=== PATIENT | female | born 1960 | race Caucasian/White ===

== ENCOUNTER 2017-01-28 14:40 | Emergency (ER) ==
--- NOTE | 2017-01-28 16:19 | PROVIDER DOCUMENTATION ---
HPI-General Adult - General Chief Complaint: Allergic Reaction Stated Complaint: ALLERGIC REACTION Time Seen by Provider: 01/28/17 16:02 Source: patient Allergies/Adverse Reactions: Patient Allergies Allergy/AdvReac Type Severity Reaction Status Date / Time amoxicillin Allergy ANAPHYLAXIS Verified 01/28/17 16:51 Home Medications: Home Medication List Medication Instructions Recorded Confirmed Last Taken Type LISINOpril [Prinivil] 5 mg PO DAILY #20 tablet 01/28/17 Unknown Rx - History of Present Illness -Gen Adult Nature of Presenting Problems: 56 y/o c/o possible allergic reaction. Was seen by [facility], dx with strep, and given amoxil and cough syrup on 01/20/17. Was taking those medications , and on 01/26 started feeling like her throat was closing and the chest was tight. Went back to the Urgent care and was given Ranatidine, Clindamycin, albuterol and prednisone. At the office that day given steroid shot and breathing treatment. Went to the ER the night of the , because she was having tightness in chest and throat. Was given a breathing treatment, and IV for BP. did xrays and CT scan to r/o PE, ruled out cardiac issues and did blood work. Told her she had bronchitis. Told her to continue taking the medications- she feels like she is having similar symptoms now. States she now has a headache along side it. Taking Motrin for pain. Tried to see Dr. Sharpe today, who sent her here because she is not seeing new patients. Review of Systems - Adult - REVIEW OF SYSTEMS - ADULT Constitutional: reports: see cuate GALVAN. denies: chills, fever Eyes: reports: no symptoms reported. denies: decreased vision, blurred vision, double vision, eye pain Ears, Nose, Mouth & Throat: reports: no symptoms reported. denies: ear pain, nose pain, throat pain Cardiovascular: reports: no symptoms reported. denies: chest pain, irregular heart rate, palpitations Respiratory: reports: no symptoms reported. denies: cough, shortness of breath , wheezing Gastrointestinal: reports: no symptoms reported. denies: abdominal pain, diarrhea, nausea, vomiting Genitourinary: reports: no symptoms reported. denies: frequency, incontinence Musculoskeletal: reports: no symptoms reported. denies: bone pain, back pain, muscle aches Integumentary: reports: no symptoms reported. denies: rash Neurological: reports: no symptoms reported. denies: ataxia, dizziness/vertigo , headache/migraines Psychiatric: reports: anxiety Endocrine: reports: no symptoms reported Hematologic/Lymphatic: reports: no symptoms reported Allergic/Immunologic: reports: no symptoms reported All Other Systems: Reviewed and Negative Past History - Adult - PAST MEDICAL HISTORY-ADULT Review of Records: reports: Old Records Reviewed, Nursing Assessment Review, Medications Reviewed Major Childhood Illnesses: reports: denies history Cardiovascular: reports: denies history Respiratory: reports: denies history Gastrointestinal: reports: denies history Obstetrical/Gynecological: reports: denies history Genitourinary: reports: denies history Musculoskeletal: reports: denies history Neurological: reports: denies history Endocrine/Immune: reports: denies history Other Conditions: reports: denies history - PRIOR SURGERIES/PROCEDURES Surgical/Procedure History: reports: reviewed, not pertinent - IMMUNIZATION STATUS Childhood Immunizations: See Nurse Assessment Flu Vaccine: See Nurse Assessment - FAMILY HISTORY Family History: reviewed, not pertinent - SOCIAL HISTORY Smoking: denies Substance Use: none/never Alcohol Use Frequency: never Physical Exam-General - PHYSICAL EXAM-ADULT Initial Vital Signs Reviewed: Yes - CONSTITUTIONAL General Appearance: appears well, alert, anxious - EYES Eyes: PERRL/EOMI, pink conjunctivae - HEAD, EARS, NOSE, MOUTH & THROAT HENMT: normocephalic/atraumatic, moist mucous membranes, normal ENT inspection, pharynx normal - NECK Neck: non-tender, full range of motion, supple, normal inspection. negative: lymphadenopathy - RESPIRATORY Respiratory: chest non-tender, lungs clear, normal breath sounds, no pleuratic chest pain, no respiratory distress, no accessory muscle use. negative: respiratory distress, decreased breath sounds, accessory muscle use, crackles, rales, rhonchi, wheezing - CARDIOVASCULAR Cardiovascular: normal peripheral pulses, regular rate, rhythm - MUSCULOSKELETAL Extremity: normal gait - SKIN Integumentary: normal color, normal turgor, warm/dry - NEUROLOGIC Neurologic: grossly normal, no motor/sensory deficits - PSYCHIATRIC Psych/Mental Status: normal mood/affect, normal thought content, normal thought process, oriented x 3, anxious Progress - PLAN OF CARE/RESULTS Progress/Plan/Lab Results: Vital Signs Temp Pulse Resp BP Pulse Ox 01/28/17 16:53 68 16 170/91 99 01/28/17 14:54 97.6 F 82 20 184/91 100 amoxicillin Allergy (Verified 01/28/17 16:51) ANAPHYLAXIS No Home Medications 01/28/17 Laboratory 01/28/17 01/28/17 16:52 16:52 WBC 11.63 H RBC 5.21 Hgb 14.6 Hct 44.1 MCV 84.6 MCH 28.0 MCHC 33.1 RDW Std Deviation 14.0 Plt Count 262 MPV 8.9 Immature Gran % (Auto) 0.3 Neut % (Auto) 74.4 Lymph % (Auto) 17.8 L Ball[place] % (Auto) 7.4 Eos % (Auto) 0.0 Baso % (Auto) 0.1 Immature Gran # (Auto) 0.04 Neut # (Auto) 8.65 H Lymph # (Auto) 2.07 [place] # (Auto) 0.86 H Eos # (Auto) 0.00 Baso # (Auto) 0.01 Sodium 142 Potassium 3.6 Chloride 106 Carbon Dioxide 23 L Anion Gap 13 BUN 16 Creatinine 0.8 Estimated GFR/1.73 m2 > 60 BUN/Creatinine Ratio 20 Glucose 112 H Calculated Osmolality 285 Calcium 9.3 Total Bilirubin 0.63 AST 16 ALT 33 Alkaline Phosphatase 87 Total Protein 7.5 Albumin 4.0 Globulin 3.5 Albumin/Globulin Ratio 1.1 Orders Category Date Time Status CBC WITH ELECTRONIC DIFF [HEME] Stat Lab 01/28/17 16:52 Completed CMP [COMPREHENSIVE METABOLIC PANEL] [CHEM] Stat Lab 01/28/17 16:52 Completed Clonidine [Catapres] Med 01/28/17 16:24 Discontinued 0.1 mg PO NOW ONE Departure - Departure Time of Disposition Order: 17:37 DIAGNOSIS: Adverse effect of drug HTN (hypertension) Qualifiers: Hypertension type: essential hypertension Qualified Code(s): I10 - Essential ( primary) hypertension Disposition: HOME 01 Certified Medical Emergency: Emergent Condition: Stable Additional Instructions: Please see the number below to establish a primary care physician Discontinue all medications you are currently on, except the inhaler as needed ED Follow Up Instructions: You have been treated by a care provider in the Emergency Department. These instructions are being provided to you so you can have an understanding of how to care for yourself upon discharge. Upon discharge from the Emergency Department, you are responsible for making arrangements for follow-up care by a physician of your choice. Take all prescribed medications as directed. Return to the Emergency Department immediately for any new or worsening symptoms. You may call the Physician Referral phone number at [phone] to obtain a list of Physicians who are taking new patients. Prescriptions: LISINOpril [Prinivil] 5 mg PO DAILY #20 tablet Attestation - Physician/ JANUSZ Attestation Patient care was provided by Advanced Practice Provider:: Yes Advanced Practice Provider:: Ana María Matson Advanced Practice Provider documentation review:: The Mid-level provider documentation, treatment plan and medical decision making was reviewed by the physician who agrees with all treatment and medical decision making by the MLP.
[2017-01-28] MEDS ORDERED: CATAPRES PO ONE (16:24)
[2017-01-28 17:03] LABS: MANUAL DIFF NEEDED? NO
[2017-01-28 17:08] LABS: BASO% 0.1 % (0.0-0.8); HEMATOCRIT 44.1 % (37.0-47.0); HEMOGLOBIN 14.6 g/dL (12.0-16.0); IMM GRAN# 0.04 X1000 (0.0-0.04); IMM GRAN% 0.3 % (0.0-0.5); LYMPH# 2.07 X1000 (1.2-3.4); LYMPH% 17.8 % (20.5-51.1); MCHC 33.1 g/dL (33-37); MCV 84.6 FL (81-99); MONO# 0.86 X1000 (0.11-0.59); MONO% 7.4 % (1.7-9.3); MPV 8.9 FL (7.4-10.4); NEUT% 74.4 % (42.2-75.2); PLT 262 X1000 (130-400); RBC 5.21 XMIL (4.2-5.4)
[2017-01-28 17:28] LABS: AGAP 13; ALKALINE PHOSPHATASE 87 U/L (32-104); BUN 16 mg/dL (8-22); CALCIUM 9.3 mg/dL (8.8-10.2); CHLORIDE 106 mmol/L (98-107); COSMO 285; GOT 16 U/L (10-30); GPT 33 U/L (10-36); POTASSIUM 3.6 mmol/L (3.5-5.1); SODIUM 142 mmol/L (136-145); TCO2 23 mmol/L (25-35); TOTAL BILIRUBIN 0.63 mg/dL (0.20-1.00); TOTAL PROTEIN 7.5 g/dL (6.3-8.3)
[2017-01-28 17:48] VITALS: BP 140/92
== END 2017-01-28 17:48 | disposition home or self-care (01) ==
LOC: ED 14:40
DX: T50.905A Adverse effect of unspecified drugs, medicaments and biological substances, initial encounter (principal); I10 Essential (primary) hypertension; R51 Headache; R53.83 Other fatigue
CPT/HCPCS: 80053; 85025